=== PATIENT | male | born 1980 | race Caucasian/White ===

== ENCOUNTER 2019-05-09 17:28 | Emergency (ER) | payer SELFPAY ==
--- NOTE | 2019-05-09 18:46 | EDPHYS ---
Physician Documentation [facility] Name: Frankie oGins Age: 38 yrs Sex: Male : 1980 Arrival Date: 05/09/2019 Time: 17:33 Bed 12 Private MD: ED Physician Acosta Martinez HPI: 05/10 11:41 This 38 yrs old Male presents to ER via Ambulatory with complaints of kdr Infection. 11:41 The patient presents with broken tooth/teeth, pain. The problem is located in the kdr frenulum, gums, left buccal mucosa, right buccal mucosa and tongue. Onset: The symptoms/episode began/occurred gradually, 1 week(s) ago. Duration: The symptoms are continuous, and are steadily getting worse. Modifying factors: The symptoms are alleviated by nothing, the symptoms are aggravated by chewing, food. Associated signs and symptoms: The patient has no apparent associated signs or symptoms. Severity of symptoms: At their worst the symptoms were mild, moderate, just prior to arrival, in the emergency department the symptoms are unchanged. The patient has experienced similar episodes in the past, several times. The patient has not recently seen a physician. Historical: - Allergies: 05/09 18:01 No Known Allergies; ph - Home Meds: 18:01 None [Active]; ph - PMHx: 18:01 None; ph - Immunization history:: Adult Immunizations unknown. - Social history:: Smoking status: Patient uses tobacco products, smokes one pack cigarettes per day. - Ebola Screening: : No symptoms or risks identified at this time. ROS: 05/10 11:41 Constitutional: Negative for fever, chills, and weight loss, Eyes: Negative for injury, kdr pain, redness, and discharge, ENT: Negative for injury, pain, and discharge, Neck: Negative for injury, pain, and swelling, Cardiovascular: Negative for chest pain, palpitations, and edema. ENT: Positive for dental pain, Gum pain Exam: 11:41 Constitutional: This is a well developed, well nourished patient who is awake, alert, kdr and in no acute distress. Head/Face: Normocephalic, atraumatic. Eyes: Pupils equal round and reactive to light, extra-ocular motions intact. Lids and lashes normal. Conjunctiva and sclera are non-icteric and not injected. Cornea within normal limits. Periorbital areas with no swelling, redness, or edema. Neck: Trachea midline, no thyromegaly or masses palpated, and no cervical lymphadenopathy. Supple, full range of motion without nuchal rigidity, or vertebral point tenderness. No Meningismus. 11:41 ENT: Dental exam: dental caries, that is severe, diffusely, fractured teeth are noted, diffusely, missing teeth, diffusely, pain, that is mild, diffusely. Vital Signs: 05/09 18:01 BP 139 / 72; Pulse 86; Resp 18; Temp 98.9(O); Pulse Ox 98% on R/A; Weight 70.31 kg; ph MDM: 18:45 Patient medically screened. kdr 05/10 11:41 Data reviewed: vital signs, nurses notes. Counseling: I had a detailed discussion with kdr the patient and/or guardian regarding: the historical points, exam findings, and any diagnostic results supporting the discharge/admit diagnosis, the need for outpatient follow up. Administered Medications: 05/09 19:08 Drug: Amoxicillin 500 mg Route: PO; hb 19:08 Follow up: Response: Medication administered at discharge. hb 19:08 Drug: Flagyl 500 mg Route: PO; hb 19:08 Follow up: Response: Medication administered at discharge. hb 19:08 Drug: traMADol 50 mg Route: PO; hb 19:08 Follow up: Response: Medication administered at discharge. hb Disposition: 05/09/19 18:45 Discharged to Home. Impression: Dental caries, Acute Dental Pain. - Condition is Stable. - Discharge Instructions: Dental Pain, Mjby-en-[id number]. - Prescriptions for Amoxicillin 500 mg Oral Capsule - take 1 capsule by ORAL route every 8 hours for 10 days; 30 tablet. Flagyl 500 mg Oral Tablet - take 1 tablet by ORAL route every 6 hours for 10 days; 40 tablet. Tramadol 50 mg Oral Tablet - take 1 tablet by ORAL route every 8 hours as needed; 16 tablet. - Medication Reconciliation Form, Thank You Letter, Antibiotic Education, Prescription Opioid Use, Work release form form. - Follow up: Private Physician; When: 2 - 3 days; Reason: If symptoms return, Further diagnostic work-up, Recheck today's complaints, Continuance of care, Re-evaluation by your physician. - Problem is an acute exacerbation. - Symptoms are unchanged. Signatures: Acosta Martinez MD MD kdr Marlena White RN RN Diane Simmons, ALEXANDRA RN hb Corrections: (The following items were deleted from the chart) 19:10 18:45 05/09/2019 18:45 Discharged to Home. Impression: Dental caries; Acute Dental hb Pain. Condition is Stable. Forms are Medication Reconciliation Form, Thank You Letter, Antibiotic Education, Prescription Opioid Use. Follow up: Private Physician; When: 2 - 3 days; Reason: If symptoms return, Further diagnostic work-up, Recheck today's complaints, Continuance of care, Re-evaluation by your physician. Problem is an acute exacerbation. Symptoms are unchanged. kdr
--- NOTE | 2019-05-09 18:46 | ER ---
Nurse's Notes [facility] Name: Frankie Goins Age: 38 yrs Sex: Male : 1980 Arrival Date: 05/09/2019 Time: 17:33 Bed 12 Private MD: Diagnosis: Dental caries;Acute Dental Pain Presentation: 05/09 17:58 Presenting complaint: Patient states: Infected teeth, oral pain since Monday, also ph reports sinus pain and nausea. Transition of care: patient was not received from another setting of care. Onset of symptoms was May 09, 2019. Risk Assessment: Do you want to hurt yourself or someone else? Patient reports no desire to harm self or others. Initial Sepsis Screen: Does the patient meet any 2 criteria? No. Patient's initial sepsis screen is negative. Does the patient have a suspected source of infection? No. Patient's initial sepsis screen is negative. Care prior to arrival: None. 17:58 Method Of Arrival: Ambulatory 17:58 Acuity: RICO 4 ph Historical: - Allergies: 18:01 No Known Allergies; ph - Home Meds: 18:01 None [Active]; ph - PMHx: 18:01 None; ph - Immunization history:: Adult Immunizations unknown. - Social history:: Smoking status: Patient uses tobacco products, smokes one pack cigarettes per day. - Ebola Screening: : No symptoms or risks identified at this time. Screenin:31 Abuse screen: Denies threats or abuse. Denies injuries from another. Nutritional ph screening: No deficits noted. Tuberculosis screening: No symptoms or risk factors identified. Fall Risk None identified. Assessment: 18:27 General: Appears in no apparent distress. comfortable, slender, Behavior is calm, ph cooperative, appropriate for age. Pain: Complains of pain in mouth. Neuro: Level of Consciousness is awake, alert, obeys commands, Oriented to person, place, time, situation. Cardiovascular: Capillary refill < 3 seconds in bilateral fingers Patient's skin is warm and dry. Respiratory: Airway is patent Respiratory effort is even, unlabored. GI: No signs and/or symptoms were reported involving the gastrointestinal system. EENT: Poor dentition noted. Derm: Skin is intact. Musculoskeletal: Circulation, motion, and sensation intact. Range of motion: intact in all extremities. Vital Signs: 18:01 BP 139 / 72; Pulse 86; Resp 18; Temp 98.9(O); Pulse Ox 98% on R/A; Weight 70.31 kg; ph ED Course: 17:33 Patient arrived in ED. as 17:39 Acosta Martinez MD is Attending Physician. kdr 18:00 Triage completed. ph 18:01 Arm band placed on Patient placed in an exam room. ph 18:27 Marlena White, RN is Primary Nurse. ph 18:32 No provider procedures requiring assistance completed. Patient did not have IV access ph during this emergency room visit. 18:39 Call light in reach. hb Administered Medications: 19:08 Drug: Amoxicillin 500 mg Route: PO; hb 19:08 Follow up: Response: Medication administered at discharge. hb 19:08 Drug: Flagyl 500 mg Route: PO; hb 19:08 Follow up: Response: Medication administered at discharge. hb 19:08 Drug: traMADol 50 mg Route: PO; hb 19:08 Follow up: Response: Medication administered at discharge. hb Outcome: 18:45 Discharge ordered by . kdr 19:08 Discharged to home ambulatory. hb 19:08 Condition: stable 19:08 Discharge instructions given to patient, Instructed on discharge instructions, follow up and referral plans. medication usage, Demonstrated understanding of instructions, follow-up care, medications, Prescriptions given X 3. 19:10 Patient left the ED. hb Signatures: Acosta Martinez MD MD [facility] Deepika Hlalman Patricia, RN RN Diane Simmons RN RN hb
[2019-05-09] MEDS ORDERED: metroNIDAZOLE 500 MG TABLET ONE ×2 (19:00→19:05)
[2019-05-09] MEDS ORDERED: AMOXICILLIN TRIHYDR 250 MG CAP ONE (19:00)
[2019-05-09] MEDS ORDERED: TRAMADOL HCL 50 MG TAB ONE (19:00)
== END 2019-05-09 19:10 | disposition home or self-care (01) ==
LOC: ER 17:28
DX: K02.9 Dental caries, unspecified (principal); F17.210 Nicotine dependence, cigarettes, uncomplicated
CPT/HCPCS: 99283